=== PATIENT | male | born 1950 | race Caucasian/White ===

== ENCOUNTER 2017-05-26 13:39 | Outpatient (CLI) | payer OTHER | END 2017-05-26 13:40 | disposition home or self-care (01) | LOC: ULT 13:39 | PROVIDERS: ATTEND Orthopaedic Surgery | DX: I25.10 Atherosclerotic heart disease of native coronary artery without angina pectoris (principal) | CPT/HCPCS: 93306 ==

== ENCOUNTER 2017-11-10 15:32 | Observation (INO) | payer MEDICARE, OTHER ==
[2017-11-10] MEDS ORDERED: predniSONE 20 MG TAB ONE ×2 (15:56→15:59)
[2017-11-10] MEDS ORDERED: Famotidine 20 MG TAB ONE (15:56)
[2017-11-10] MEDS ORDERED: Famotidine/PF 20 mg/2ml Vial ONE (17:05)
[2017-11-10] MEDS ORDERED: methylPREDNISolone Sod Succ/PF 125 MG/2 ML VIAL ONE (17:05)
--- NOTE | 2017-11-10 18:04 | RAD ---
NECK SOFT TISSUES TWO VIEWS: History: Concern for foreign body. FINDINGS: Epiglottis appears unremarkable. Thyroid is patent. No evidence of radiopaque foreign body identified . Degenerative changes in the spine with anterior spurring. IMPRESSION: No evidence of radiopaque foreign body or soft tissue encroachment on the airway. POS: JOSÉ LUIS
[2017-11-10 18:27] LABS: #Eosinphils 0.1 thou/uL (0.0-0.7); #Lymphocytes 0.9 thou/uL (1.20-3.40); #Monocytes 0.3 thou/uL (0.11-0.59); #Neutrophils 8.2 thou/uL (1.40-6.50); %Basophils 0.3 % (0.0-1.0); %Eosinophils 1.5 % (0.0-10.0); %Lymphocytes 9.2 % (21.0-51.0); %Monocytes 3.5 % (0.0-10.0); %Neutrophils 85.5 % (42.0-75.0); Hemoglobin 15.5 g/dL (14.0-18.0); Mean Corpuscular HGB CONC 34.2 g/dL (32.0-36.0); Mean Corpuscular Hemoglobin 32.6 pg (27.0-31.0); Mean Corpuscular Volume 95.3 fl (80.0-94.0); Mean Platelet Volume 6.3 fL (7.4-10.4); Platelet Count 274 thou/uL (130-400); RBC Distribution Width 11.7 % (11.5-14.5); Red Blood Cell (RBC) Count 4.75 mill/uL (4.70-6.10); White Blood Cell (WBC) Count 9.6 thou/uL (4.8-10.8)
[2017-11-10 18:44] LABS: ALT (SGPT) 31 U/L (8-55); AST (SGOT) 25 U/L (5-34); Albumin 4.6 g/dL (3.4-4.8); Alkaline Phosphatase 60 U/L (40-150); Anion Gap 17 mmol/L (10-20); BUN (Urea Nitrogen) 14 mg/dL (8.4-25.7); Bilirubin, Total 0.6 mg/dL (0.2-1.2); Calc. Creatinine Clearance 0 mL/min (70-130); Calcium 9.4 mg/dL (7.8-10.44); Carbon Dioxide 23 mmol/L (23-31); Chloride 100 mmol/L (98-107); Estimated GFR-MDRD 86; Globulin 3.5 g/dL (2.4-3.5); Glucose 95 mg/dL (80-115); Potassium 3.7 mmol/L (3.5-5.1); Protein, Total 8.1 g/dL (5.8-8.1); Sodium 136 mmol/L (136-145)
--- NOTE | 2017-11-10 18:49 | CON ---
DATE OF CONSULTATION: 11/10/2017 The patient was seen in consultation by the ER for evaluation of dysphagia. BRIEF HISTORY: This is a 67-year-old gentleman. He has been on YARI inhibitors for many years. He n oticed some upper lip swelling on Friday morning when he woke up. The night before, he has just been eating barbecue no new foods in his diet and take a Benadryl and I felt that this slowly resolved an d then today at lunch time, he felt as if he had more swelling resume in his upper lip and then also in his lower lip. He was eating chocobar that has peanut in it at lunch time and felt that the peanu ts were kind of hanging in his throat. Otherwise, he has no history of peanut allergies. No history of other allergies. He had a similar reaction take place approximately 15 to 20 years ago for unkno wn reasons, which resolved spontaneously. PAST MEDICAL HISTORY: Hypertension. PAST SURGICAL HISTORY: None. MEDICATIONS: Lisinopril. ALLERGIES: No known drug allergies. PHYSICAL EXAMINATION: VITAL SIGNS: Stable, resting comfortably in bed. HEENT: Voice is clear. No stridor and no stertor. No trismus. There is mild to moderate edema of the right upper lip and right lower lip, but no extension intraorally or to the tongue or floor of mo uth. Soft palate is within normal limits. NECK: No lymphadenopathy or masses. EARS: TMs intact. Middle ears well aerated. NOSE: Nasal cavity septal deviation to the left 2-3+. PROCEDURE: After topical anesthesia and decongestant was applied to the nasal cavity, flexible laryn goscopy was performed. The nasal cavity and nasopharynx were clear of lesions. Bilateral vocal cord s are fully mobile. Piriform sinuses, vallecula, epiglottis were all within normal limits. There is no evidence of edema. ASSESSMENT: Angioedema, likely related to his lisinopril ingestion less likely secondary to food all ergy. PLAN: I am recommending to give IV Decadron as well as Benadryl and Pepcid and observe overnight on the Internal Medicine service.
[2017-11-10] MEDS ORDERED: Pepto Bismol Chew TAB PO PRN (19:32)
[2017-11-10] MEDS ORDERED: Guaifenesin DM 100-10/5 ML UDCUP PO PRN (19:32)
[2017-11-10] MEDS ORDERED: Acetaminophen 325 MG TAB PO PRN (19:32)
[2017-11-10] MEDS ORDERED: Ondansetron HCl/PF 4 MG/2 ML Vial IVP PRN (19:32)
[2017-11-10] MEDS: Famotidine 20 MG TAB PO SCH (20:54)
[2017-11-10] MEDS: diphenhydrAMINE 25 MG CAP PO SCH (20:54)
[2017-11-10] MEDS ORDERED: Carvedilol 25 MG TAB PO SCH (21:00)
[2017-11-10] MEDS ORDERED: Atorvastatin Calcium 20 MG TAB PO SCH (21:00)
[2017-11-10 22:10] VITALS: BMI 29.5
--- NOTE | 2017-11-11 01:40 | HP ---
REASON FOR ADMISSION: Suspected angioedema. HISTORY OF PRESENTING ILLNESS: The patient gives history of having right face and upper lip swelling on Friday. He took a Benadryl tablet and this gradually went away slowly. It took 6-8 hours to completely go away. This afternoon, he had lunch and started to have left side of his lower lip begin to swell and gradually the whole lip got swollen. He was eating peanuts with a chocolate bar and thought it got stuck in his throat. All of this prompted him to come to the emergency room. He was evaluated by Dr. Niko Quintero, ENT specialist, with scope here in the emergency room. He was told there is no foreign body. Has no complaints of breathing at present. He can swallow his saliva with no trouble. The patient has had similar complaints 20 years ago and thought it was related to him eating squash. He does not recall eating anything new in the last 2-3 days. PAST MEDICAL AND SURGICAL HISTORY: Hypertension, left lower extremity stent for peripheral vascular disease by Dr. Womack, L5-S1 disk prolapse with laminectomy 20 years ago, dyslipidemia, has had a stress test done one and half years back in Dr. Womack' office, which was negative. CURRENT MEDICATIONS: The patient is on Coreg 25 mg twice daily, hydrochlorothiazide 12.5 mg daily, Lipitor 20 mg p.o. daily, Norvasc 10 mg p.o. daily, ramipril 10 mg daily, aspirin 81 mg p.o. daily. ALLERGIES: No known drug allergies. PERSONAL HISTORY: Quit smoking 20 years ago. Prior to that, has smoked one pack a day for nearly 20 years. Drinks 2 beers on a daily basis. Does not abuse drugs. Lives with his . FAMILY HISTORY: Mother in her sleep and was suspected to have MO. She was 67 years old. His stepfather of lung cancer and its complications at the age of 72 years. REVIEW OF SYSTEMS: The following complete review of systems was negative, unless otherwise mentioned in the HPI or below: Constitutional: Weight loss or gain, ability to conduct usual activities. Skin: Rash, itching. Eyes: Double vision, pain. ENT/Mouth: Nose bleeding, neck stiffness, pain, tenderness. Cardiovascular: Palpitations, dyspnea on exertion, orthopnea. Respiratory: Shortness of breath, wheezing, cough, hemoptysis, fever or night sweats. Gastrointestinal: Poor appetite, abdominal pain, heartburn, nausea, vomiting, constipation, or diarrhea. Genitourinary: Urgency, frequency, dysuria, nocturia. Musculoskeletal: Pain, swelling. Neurologic/Psychiatric: Anxiety, depression. Allergy/Immunologic: Skin rash, bleeding tendency. PHYSICAL EXAMINATION: GENERAL: The patient is a 67-year-old male who is currently not in any acute distress. VITAL SIGNS: Blood pressure 101/54, pulse 60 per minute, respiratory rate 16 per minute, temperature 97.8 degrees Fahrenheit, saturating 94% on room air. NECK: Supple, no elevated JVD. HEENT: Eyes, extraocular muscles are intact. Pupils are reacting to light. Oral cavity, mucous membranes are moist. The patient's lower lip is edematous. His tongue appears to be normal. There is no pharyngeal congestion or exudates. CARDIOVASCULAR SYSTEM: S1, S2 heard. Regular rhythm. RESPIRATORY SYSTEM: Air entry 2+ bilateral. No rales or rhonchi. ABDOMEN: Soft, bowel sounds heard. No tenderness, rigidity, or guarding. EXTREMITIES: No peripheral edema or calf tenderness. VASCULAR SYSTEM: Peripheral pulses 1+ bilateral, no ischemic ulcerations or gangrene. CENTRAL NERVOUS SYSTEM: No gross focal deficit seen. The patient is alert, awake, oriented well. PSYCHIATRIC SYSTEM: The patient's mood is euthymic. No hallucinations or delusions. LABORATORY AND X-RAY FINDINGS: White count of 9.6, H and H 15 and 45, MCV is 95 , platelet count 274 with 85% neutrophils. Electrolytes stable. BUN 14, creatinine 0.8. Glucose 95. Liver enzymes within normal limits. Albumin is 4.6. Neck, 2-view soft tissues x-ray done, shows no evidence of radiopaque foreign body or soft tissue encroachment on the airway. CLINICAL IMPRESSION AND PLAN: The patient will be under observation on telemetry for possible angioedema. He is on ramipril and this will be held for now. He has had ENT consultation with flexible laryngoscopy done and examination of nasal cavity and nasopharynx, all of which were done by Dr. Niko Quintero. His vocal cords were fully mobile. His piriform sinuses, vallecula, and epiglottis were all within normal limits with no edema. The patient will be on Benadryl 25 mg 3 times daily, Solu-Medrol 40 mg IV q.6 hourly along with Pepcid 20 mg twice daily. We will continue his Norvasc, Lipitor, and Coreg as before. He will be on heart-healthy diet and will be closely monitored for any airway compromise. If the patient's swelling resolves , he will be discharged in the morning. HERMAND
[2017-11-11 05:09] LABS: #Lymphocytes 0.5 thou/uL (1.20-3.40); #Monocytes 0.1 thou/uL (0.11-0.59); #Neutrophils 4.6 thou/uL (1.40-6.50); %Basophils 0.2 % (0.0-1.0); %Eosinophils 0.1 % (0.0-10.0); %Lymphocytes 9.3 % (21.0-51.0); %Monocytes 0.9 % (0.0-10.0); %Neutrophils 89.5 % (42.0-75.0); Hemoglobin 14.1 g/dL (14.0-18.0); Mean Corpuscular HGB CONC 34.5 g/dL (32.0-36.0); Mean Corpuscular Hemoglobin 32.8 pg (27.0-31.0); Mean Corpuscular Volume 95.1 fl (80.0-94.0); Mean Platelet Volume 6.3 fL (7.4-10.4); Platelet Count 241 thou/uL (130-400); RBC Distribution Width 11.7 % (11.5-14.5); Red Blood Cell (RBC) Count 4.29 mill/uL (4.70-6.10); White Blood Cell (WBC) Count 5.1 thou/uL (4.8-10.8)
[2017-11-11 05:21] LABS: ALT (SGPT) 22 U/L (8-55); AST (SGOT) 17 U/L (5-34); Alkaline Phosphatase 51 U/L (40-150); Anion Gap 14 mmol/L (10-20); BUN (Urea Nitrogen) 13 mg/dL (8.4-25.7); Bilirubin, Total 0.4 mg/dL (0.2-1.2); Calc. Creatinine Clearance 116 mL/min (70-130); Carbon Dioxide 25 mmol/L (23-31); Chloride 103 mmol/L (98-107); Estimated GFR-MDRD Greater than 90; Globulin 2.9 g/dL (2.4-3.5); Glucose 167 mg/dL (80-115); Protein, Total 6.9 g/dL (5.8-8.1); Sodium 138 mmol/L (136-145)
[2017-11-11] MEDS ORDERED: Carvedilol 25 MG TAB PO SCH (08:00)
[2017-11-11] MEDS: diphenhydrAMINE 25 MG CAP PO SCH (08:08)
[2017-11-11 08:10] VITALS: BP 142/73
[2017-11-11] MEDS: Famotidine 20 MG TAB PO SCH (08:11)
[2017-11-11 08:55] VITALS: TEMP 98
[2017-11-11] MEDS ORDERED: Enoxaparin Sodium 40 MG/0.4 ML SYRINGE SC SCH (09:00)
[2017-11-11] MEDS ORDERED: Amlodipine 10 MG TAB PO SCH (09:00)
--- NOTE | 2017-11-11 16:51 | PDOC.PN ---
- Subjective Encounter Start Date: 11/11/17 Encounter Start Time: 08:30 Subjective: lip swelling has resolved -: no trouble eating or breathing - Objective Resuscitation Status: Resuscitation Status FULL:Full Resuscitation MAR Reviewed: Yes Vital Signs & Weight: Vital Signs (12 hours) Temp Pulse Resp BP BP Pulse Ox 11/11/17 08:10 98.0 F 70 16 11/11/17 08:09 70 142/73 H 11/11/17 07:48 98.2 F 62 18 142/73 H 96 Weight Weight 205 lb 11.2 oz I&O: 11/10/17 11/11/17 11/12/17 06:59 06:59 06:59 Intake Total 577 240 Output Total 675 Balance -98 240 Result Diagrams: 11/11/17 04:52 11/11/17 04:52 Phys Exam - Physical Examination HEENT: PERRLA, moist MMs Neck: no JVD, supple Respiratory: no rales, no rhonchi Cardiovascular: RRR, no significant murmur Gastrointestinal: soft, non-tender, positive bowel sounds Musculoskeletal: no edema, pulses present Neurological: non-focal, moves all 4 limbs Psychiatric: A&O x 3 Dx/Plan (1) Angio-edema Code(s): T78.3XXA - ANGIONEUROTIC EDEMA, INITIAL ENCOUNTER Status: Resolved Qualifiers: Encounter type: subsequent encounter Qualified Code(s): T78.3XXD - Angioneurotic edema, subsequent encounter (2) HTN (hypertension) Code(s): I10 - ESSENTIAL (PRIMARY) HYPERTENSION Status: Chronic Qualifiers: Hypertension type: essential hypertension Qualified Code(s): I10 - Essential (primary) hypertension (3) PVD (peripheral vascular disease) Code(s): I73.9 - PERIPHERAL VASCULAR DISEASE, UNSPECIFIED Status: Chronic (4) Dyslipidemia Code(s): E78.5 - HYPERLIPIDEMIA, UNSPECIFIED Status: Chronic - Plan angio-edema has resolved, adv not to take ramipril -: to check bp and pulse twice daily and record to f/u with PCP -: dc pt home * .
--- NOTE | 2017-11-12 10:24 | DIS ---
DATE OF ADMISSION: 11/10/2017 DATE OF DISCHARGE: 11/11/2017 DISCHARGE DISPOSITION: To home. PRIMARY DISCHARGE DIAGNOSIS: Angioedema, resolved. SECONDARY DISCHARGE DIAGNOSES: Hypertension, dyslipidemia, peripheral vascular disease. PROCEDURES DONE DURING HOSPITALIZATION: The patient has had x-ray of soft tissues of the neck, which showed no evidence of radiopaque foreign body or soft tissue encroachment on the airway. INPATIENT CONSULT: Niko Quintero M.D. DISCHARGE MEDICATIONS: Prednisone 5 mg daily for another 5 days, Benadryl p.r.n., Pepcid 20 mg twice daily for 10 days, hydrochlorothiazide 12.5 mg p.o. daily, Coreg 25 mg twice daily, atorvastatin 20 mg p.o. at bedtime, aspirin 81 mg p.o. daily, Norvasc 10 mg p.o. daily. ALLERGIES: Allergic to YARI INHIBITORS. DISCHARGE PLAN: The patient to follow up with primary care physician in 1 week. He has also been advised to check blood pressures and pulse twice daily and record to follow up with primary care physician. BRIEF COURSE DURING HOSPITALIZATION: The patient initially came in with complaints of swelling of upper lip. He also felt like he choked on a peanut while he was eating a santosh bar. He was evaluated by Dr. Niko Quintero, ENT specialist in the ER and has had laryngoscopy done with no foreign body detected. He is essentially admitted for angioedema. The patient was on ramipril and this has been discontinued. He was placed on steroids, Benadryl and Pepcid and has responded well to above measures. He is eating well and has no trouble with breathing. The patient was advised to continue prednisone for another 5 days and Benadryl on a p.r.n. basis along with Pepcid 20 mg twice daily. The patient is advised to come to the nearest emergency room if he were to develop the symptoms back. He is advised not to take ramipril. Please see a [id number] documentation on [facility] for the day of discharge. MTDD
== END 2017-11-11 09:46 | disposition home or self-care (01) ==
LOC: ERS 15:32 → 2SW 19:24
PROVIDERS: ADMIT Internal Medicine; ATTEND Internal Medicine
DX: T78.3XXA Angioneurotic edema, initial encounter (principal); I10 Essential (primary) hypertension; E78.5 Hyperlipidemia, unspecified; I73.9 Peripheral vascular disease, unspecified; Z79.899 Other long term (current) drug therapy; Z88.8 Allergy status to other drugs, medicaments and biological substances; Z95.820 Peripheral vascular angioplasty status with implants and grafts; Z98.890 Other specified postprocedural states; Z87.891 Personal history of nicotine dependence
CPT/HCPCS: 31575; 36415; 70360; 80053; 85025; 96372; 96374; 96375; 96376; A4216; G0378; J1650; J2920; J2930; J7506; S0028